=== PATIENT | female | born 1970 | race Caucasian/White ===

== ENCOUNTER 2023-10-22 05:41 | Observation (INO) ==
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
[2023-10-22] MEDS ORDERED: BUPIVACAINE 0.5% IT PRN (06:00)
[2023-10-22] MEDS ORDERED: HYDROMORPHONE IT PRN (06:00)
[2023-10-22] MEDS ORDERED: HYDROmorphone INJ 1 MG/ML SYRINGE IV PRN (06:35)
[2023-10-22] MEDS ORDERED: ATROPINE SULFATE 0.1 MG/ML 10ML SYR IV PRN (06:35)
[2023-10-22] MEDS ORDERED: LABETALOL HCL IV 5 MG/ML 20ML IV PRN (06:35)
[2023-10-22] MEDS ORDERED: ePHEDrine sulfate 50 MG/ML AMP IV PRN (06:35)
[2023-10-22] MEDS ORDERED: NALOXONE HCL 0.4 MG/1 ML VIAL/CARP IV PRN ×2 (06:35→10:23)
[2023-10-22] MEDS ORDERED: FLUMAZENIL 0.1 MG/1 ML 10 ML VIAL IV PRN (06:35)
[2023-10-22] MEDS: LR 15ML/HR IV SCH (06:47)
[2023-10-22] MEDS: ONDANSETRON INJ 2 MG/ML 2 ML VIAL IV PRN ×2 (07:13→16:12)
[2023-10-22] MEDS ORDERED: PROPOFOL IV EMULSION 10 MG/ML 20 ML VIAL IV ONE ×2 (07:14)
[2023-10-22] MEDS ORDERED: fentaNYL citrate PF 100 MCG/2 ML VIAL ONE (07:14)
[2023-10-22] MEDS ORDERED: MIDAZOLAM HCL 1 MG/ML 2ML VIAL ONE (07:16)
--- NOTE | 2023-10-22 07:23 | History & Physical Bridge Note ---
Date of Service October 22, 2023 History & Physical Bridge Note History & Physical Bridge Note Linh Garcia is a 53-year-old female with a history of having intrathecal drug delivery system to control her chronic thoracolumbar axial pain. She was referred to [facility] pain management center because of high residuals at refills recently and symptoms consistent with withdrawals. Additionally, the intrathecal pump is malpositioned and that it is highly mobile and flipping. Patient is scheduled today for evaluation and revision of the intrathecal pump, possible catheter or placement the entire system due to malfunction of the pump and malposition. Patient's past medical history, surgical history, medication and allergy list has been reviewed and no changes noted since his last history and physical examination performed. Review of systems is negative for any cardiac, pulmonary, GI, , endocrine or acute neurological complaints other than what is listed in the HPI section. Physical exam: GENERAL: Patient appears older than her stated age. Speech and cognition is intact. Mood and affect is appropriate. Sensorium is clear. She is in no acute distress. HEAD: Normocephalic; atraumatic. EYES: Pupils are round and equal. Mucous membranes moist and pink. No oral lesions noted. ENT: No external ear discharge or lesions. No rhinorrhea or epistaxis. No mucosal lesions. NECK: Full ROM. Trachea is midline. No thyromegaly. No cervical lymphadenopathy. Carotids without bruit. CARDIAC: Regular rate and rhythm. CHEST: Regular chest respiration and excursion. Lungs are clear to auscultation. ABDOMEN: No organomegaly appreciated. Bowel sounds are normal. EXTREMITIES: Full ROM and +5 strength of bilateral lower extremities. Distal sensation and pulses intact bilaterally. BACK: Loss of lumbar lordosis. NEURO: Cranial nerves II-XII grossly intact with no focal deficits noted. Deep tendon reflexes in the upper and the lower extremities are symmetrical. Sensation and motor strength testing is unremarkable. SKIN: No lesions, erythema, or rashes noted. ASSESSMENT: 1. Malfunctioning of intrathecal pump. 2. Malposition of intrathecal pump. RECOMMENDATIONS: 1. Evaluation of the intrathecal catheter with explores the pump pocket. 2. Replacement of intrathecal pump. 3. Revision and/or possible placement of the entire system. History reviewed, examination performed, pertinent laboratory and imaging studies reviewed. No contraindications noted to proceeding with the proposed procedure. Potential risks including infection, bleeding, hematoma, nerve injury, persistent back pain, injury to the spinal cord, dural puncture with persistent cerebrospinal fluid leak, post dural puncture headache which may require additional interventional procedures to treat were discussed with the patient in detail. Alternative treatments were also discussed. Patient's questions were answered and gives informed consent to proceed with the proposed procedure.
[2023-10-22] MEDS: ceFAZolin 3000MG 3,000 MG/72.5 ML BAG IV SCH (07:50)
[2023-10-22] MEDS ORDERED: SUCCINYLCHOLINE CHLORIDE 20 MG/ML 10 ML VIAL IV ONE (09:25)
[2023-10-22] MEDS ORDERED: CISATRACURIUM BESYLATE IV SOLN 2 MG/ML 10 ML VIAL IV ONE ×2 (09:25→09:30)
[2023-10-22] MEDS ORDERED: PHENYLEPHRINE 100MCG/ML 10ML SYR IV ONE (09:26)
[2023-10-22] MEDS ORDERED: ePHEDrine sulfate 50 MG/5 ML SYR ONE (09:26)
[2023-10-22] MEDS ORDERED: DEXAMETHASONE SOD INJ 4 MG/ML VIAL ONE (09:29)
[2023-10-22] MEDS ORDERED: ONDANSETRON INJ 2 MG/ML 2 ML VIAL ONE (09:29)
[2023-10-22] MEDS: ARISTA ABSORBABLE HEMOSTAT 3GM TOP ONE (09:40)
[2023-10-22] MEDS ORDERED: NEOSTIGMINE METHYLSULFATE 1 MG/ML 10ML VIAL ONE (10:05)
[2023-10-22] MEDS ORDERED: GLYCOPYRROLATE 0.2 MG/ML VIAL ONE (10:06)
[2023-10-22] MEDS ORDERED: MAGNESIUM CITRATE 296 ML/BTL PO PRN (10:23)
[2023-10-22] MEDS ORDERED: diphenhydrAMINE Capsule 25 MG CAP PO PRN (10:23)
[2023-10-22] MEDS ORDERED: ALBUTEROL HFA 8 GM INHALER INH PRN (10:27)
[2023-10-22] MEDS ORDERED: BACLOFEN 10 MG TAB PO PRN (10:27)
[2023-10-22] MEDS ORDERED: NITROGLYCERIN SL 0.4 MG/TAB TAB SL PRN (10:27)
[2023-10-22] MEDS ORDERED: ONDANSETRON 8MG OD TAB PO PRN (10:27)
[2023-10-22] MEDS ORDERED: DIPHENOXYLATE/ATROPINE 2.5/0.025MG TAB PO PRN (10:27)
[2023-10-22] MEDS ORDERED: NON-FORMULARY MEDICATION (Tirzepatide [Mounjaro] 5 mg/0.5 mL pen injector) SQ SCH (10:30)
[2023-10-22] MEDS ORDERED: NO NARCOTICS OR SEDATIVES SCH (10:30)
[2023-10-22] MEDS: LIDOCAINE 2%/EPINEPHRINE 1:100,000 20ML INFIL ONE (10:34)
[2023-10-22] MEDS: fentaNYL citrate PF 100 MCG/2 ML VIAL IV PRN (10:44)
[2023-10-22] MEDS: PROMETHAZINE HCL 6.25 MG in SODIUM CHLORIDE 0.9% 50 ML IV PRN (10:45)
--- NOTE | 2023-10-22 10:52 | Operative Report ---
WARD Post Operative Report Pre & Post Diagnosis Operation Date: 10/22/23 07:30 Pre-Op Diagnosis: 1. Malposition of Intrathecal Pump. 2. Nonfunctioning intrathecal catheter system. Post-Op Diagnosis: Same I identified the patient and participated in the time-out.: Yes Procedure Operation Date: 10/22/23 07:30 Actual Procedures: 1. Explantation of intrathecal pump and catheter. 2. Implantation of new intrathecal catheter and pump. 3. Refill and reprogram intrathecal pump. 4. Revision of the pump pocket. Hmuphrey Cr MD, [facility] Surgeon Humphrey Cr MD, [employer] Creative Services Specialist Lupe Hawkins DO Estimated Blood Loss 10 Findings Consistent with Post-Op Diagnosis Specimens None Drains None Anesthesia Type General Complications none Disposition Accompanied Patient To Recovery: No Disposition: Recovery Room Description of Procedure The patient was explained the risks, benefits, alternatives of the procedure and agreed to proceed as above. Informed consent was obtained and witnessed. Patient has intrathecal delivery system implanted but the catheter is located intrathecally as well as the pump is at high residuals and the patient experiencing withdrawal symptoms without efficacy. Further evaluation demonstrated intrathecal Trulicity was not functioning and therefore it was recommended patient to go explantation and replantation of the needle system. Patient also complained of the malpositioning of the intrathecal pump in the left lower quadrant of the abdomen and patient was offered revision of the pump pocket as well. A time out was performed after the patient was brought into the Operating Room. Antibiotics were given for prophylaxis. The patient was then induced with general anesthesia without complications and was placed in right lateral decubitus position. The skin was prepped over the thoracolumbar back and the abdomen with DuraPrep followed by Betadine and draped in sterile fashion. Sterile drapes and Ioban dressing was applied. The existing pump was identified in the left lower quadrant and using a scalpel, electro cautery, and blunt dissection, the existing pump was exposed and the old pump was explanted after removing 2 silk sutures. The catheter was located using fluoroscopy and incision was made in the thoracolumbar spine and carried down to locate the catheter using electrocautery. Catheter was noted to be out of the spinal canal and was pulled via the pocket incision easily. No CSF leak was noted. At this point, it was decided to replace the entire system. Using biplanar fluoroscopy an 14-gauge spinal needle was used to gain access to the intrathecal sac at L1/L2 interspace. Clear free cerebral spinal fluid flow was noted without any blood. Medtronic intrathecal catheter was passed through the needle under fluoroscopic guidance and the tip was positioned at top of T9 vertebra. Stylet was removed and free CSF flow was aspirated. Using a scalpel, 1 inch midline incision was made surrounding the intrathecal needle. Hemostasis was achieved using electro cautery. The epidural catheter was secured to the dorso- lumbar fascia with 2 purse string 0-0 silk ties. Then the spinal needle was removed and a Actitotronic butterfly anchor to secure the catheter to the underlying supraspinous ligament was utilized to secure the catheter. Free CSF flow from the intrathecal catheter after anchoring of the catheter to the fascia. The tunneling device was used to bring the proximal end of the catheter to the pump pocket. The sutureless connector/extension was attached to the catheter into a new pump. Free flow of CSF was aspirated via the access port of the pump. Both pocket and midline axial thoracic incisions were irrigated with sterile saline containing Betadine. Hemostasis was achieved using Lety. The intrathecal pump was filled was rinsed and filled with mg/ml per protocol. The intrathecal pump was anchored in the pocket with 4-0 Prolene sutures. No complications were noted after the intrathecal pump was placed inside the pocket. Both wounds were closed in similar fashion using continuous 0 antibiotic coated STRATAFIX suture for deeper layer and running 3-0 antibiotic coated STRATAFIX for subcuticular layer. Prineo dressing was applied to the skin. Aquacel Ag was applied to both incisions. Abdominal binder was placed. No complications were noted throughout the procedure. The patient tolerated the procedure and general anesthesia without obvious complications.. Patient was allowed to emerge from anesthesia at the end of the procedure and transferred back to the [facility]. Patient was transported to the recovery room in stable condition. The patient will follow up with our clinic within 7 days for a wound check and then plan to have the austin removed at day 14. Pump size inserted: 20 ml Level of catheter: Superior endplate T9 Catheter trimmed to: 0 cm Medication placed in pump: Hydromorphone 3.0 mg/ml and bupivacaine 10 mg/mL to run at 0.19 mg hydromorphone/24 hours I attest to the content of the Intraoperative Record and any orders documented therein. Any exceptions are noted below.
[2023-10-22] MEDS: PROMETHAZINE HCL INJ 25 MG/ML 1 ML VIAL ONE (13:11)
[2023-10-22] MEDS: SODIUM CHLORIDE 0.9% 50 ML BAG ONE (13:11)
--- NOTE | 2023-10-22 13:14 | Anesthesiology Progress Note ---
Date of Service October 22, 2023 Anesthesia Post Procedure Vital Signs Vital Signs: Temp Pulse Pulse Resp BP Pulse Ox O2 Del Method 10/22/23 13:00 73 20 102/53 L 92 Oxymask 10/22/23 12:30 79 17 91/64 L 95 Oxymask 10/22/23 12:00 65 12 104/58 L 94 Oxymask 10/22/23 11:30 70 16 99/70 L 97 Oxymask 10/22/23 11:20 75 20 126/61 100 Oxymask 10/22/23 11:10 36.4 C L 82 20 118/66 98 Oxymask 10/22/23 11:00 78 15 118/60 96 Oxymask 10/22/23 10:50 82 14 129/70 95 Oxymask 10/22/23 10:40 89 19 103/70 92 Oxymask 10/22/23 10:33 36.1 C L 86 16 134/66 93 Oxymask 10/22/23 06:09 36.6 C 65 18 143/85 H 94 Room Air O2 Flow Rate 10/22/23 13:00 4 10/22/23 12:30 4 10/22/23 12:00 4 10/22/23 11:30 4 10/22/23 11:20 4 10/22/23 11:10 4 10/22/23 11:00 4 10/22/23 10:50 6 10/22/23 10:40 6 10/22/23 10:33 6 10/22/23 06:09 Pain Intensity Lower Back: Pain Intensity: 4 Transfer of Care Handoff Completed per policy Notes Mental Status: alert / awake / arousable Patient Amnestic to Procedure: Yes Nausea / Vomiting: adequately controlled Pain: adequately controlled Airway Patency, RR, SpO2: stable & adequate BP & HR: stable & adequate Hydration State: stable & adequate Anesthetic Complications: no major complications apparent
[2023-10-22] MEDS: GABAPENTIN 800 MG TAB PO SCH (14:41)
[2023-10-22] MEDS: HYDROCODONE/ACETAMOPHEN 5/325MG TAB PO PRN (14:41)
[2023-10-22] MEDS: buPROPion SR 150 MG TABCR PO SCH (14:42)
[2023-10-22] MEDS: droNABinol 2.5 MG CAP PO SCH (17:28)
[2023-10-22] MEDS: HYDROmorphone INJ 0.5 MG/0.5 ML SYR IV PRN (17:34)
[2023-10-22] MEDS: busPIRone 5 MG TAB PO SCH (19:51)
[2023-10-22] MEDS: AMITRIPTYLINE HCL 10 MG TAB PO SCH (19:51)
[2023-10-22] MEDS: DOCUSATE SODIUM 100 MG CAP PO SCH (19:52)
[2023-10-22] MEDS: SUCRALFATE 1 GM TAB PO SCH (19:52)
[2023-10-23] MEDS: LACTATED RINGER'S 1,000 ML IV SCH (01:07)
--- NOTE | 2023-10-23 06:12 | Communication Note ---
Date of Service: October 23, 2023 1100 PM Notified that patient had not yet urinated since her surgery that morning. Patient was bladder scanned and shown to have 112 cc in her bladder. No suprapubic discomfort or urethral burning at this time. Started on mIVF. Patient with chronic urinary incontinence, no known history or urinary retention. 0600 AM Notified that patient was bladder scanned for 450 ccs. Patient straight cathed for 900 ccs. Urinalysis and urine culture ordered. Patient to trial voiding independently post straight cath this AM. Patient may require Kirk placement for bladder rest if still not urinating this AM, orders placed.
[2023-10-23 06:39] LABS: Appearance Urine Clear (Clear); Bacteria Urine Automated Negative (Negative); Bilirubin Urine Negative (Negative); Blood Urine Negative (Negative); Color Urine Yellow; Glucose Urine UA Negative (Negative); Ketones Urine Negative (Negative); Leukocyte Esterase Urine Trace (Negative); Nitrite Urine Negative (Negative); Protein Urine Trace (Negative); RBC Urine Automated 0-4 /hpf (0-4); Specific Gravity Urine 1.021 (1.000-1.030); Urobilinogen Urine Negative (Negative)
[2023-10-23] MEDS: metFORMIN HCL 500 MG TAB PO SCH (07:57)
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
--- NOTE | 2023-10-23 08:29 | Pain Management Progress Note ---
Date of Service October 23, 2023 Assessment & Plan (1) Malfunction of intrathecal infusion pump: (2) Intractable back pain: (3) Implantable intrathecal infusion pump present: Plan 1. Patient is experiencing urinary retention status post surgery that did require straight catheterization this morning. Intrathecal pump was programmed at minimal rate to receive hydromorphone 0.207 mg/day and bupivacaine 0.069 mg/day. She does have hydrocodone 5/325 mg every 4 hours ordered if needed for pain. 2. Incisions appear well. She does have follow up appointment with Leyda JUAREZ next week for wound check. 3. Wear abdominal binder 24/ x 4 weeks then during activity only x 4 weeks 4. She is currently receiving 4 liters of oxygen via Oxymask and there is notable wheezing noted. She states that her oxygen saturations at home are typically between 90-92 but she does not typically wheeze. 5. Once she is able to void plan to discharge to home. Admission and Anticipated Discharge Date Admission Date: October 22, 2023 Waleska Melton is a 53-year-old female that is status post explantation of intrathecal pump and catheter and implantation of new intrathecal pump and catheter. Since surgery she has not been able to urinate and did require straight catheterization this morning and 950 cc of urine was removed and sent for urinalysis. Patient states that her low back pain is unchanged from prior to surgery. Pain is rated 6/10 currently. She is wearing abdominal binder without issue. There is a mild headache but it is not positional or severe. No discharge noted from the incisions. She does have a mild discomfort in the left lower abdomen with positional changes. There is mild nausea, no vomiting. No fevers, chills, dizziness. Case discussed with Dr. Lupe Hawkins Physical Exam Physical Exam: GENERAL: This is a morbidly obese 53 year old female in no acute distress. HEAD/FACE: Normocephalic and atraumatic. EYES: No drainage or conjunctival injection. ENT: Nose without bleeding or discharge. Oral mucosa moist. NECK: Full ROM without apparent pain. No swelling or masses noted. RESPIRATORY: Wearing 4 L of oxygen via mask. There is wheezing noted. CHEST/AXILLA: Chest movement symmetrical. No deformities noted. ABDOMEN/GI: Intrathecal pump is located along the left lower abdomen. Mild tenderness. No mobility or flipping noted. Aquacel dressing is intact. No drainage noted. BACK: Moves without difficulty. Thoracolumbar incision does not show any drainage, erythema, warmth. Aquacel dressing is intact. SKIN: There is a small incision along the left flank with gauze and tape dressing without any erythema, warmth, drainage. MS/EXTREMITY: No swelling, no deformities. Moving extremities appropriately. NEURO: Alert and appears oriented. Speech is fluent. Cranial Nerves are grossly intact. PSYCH: Alert, pleasant, affect is calm
[2023-10-23] MEDS: SERTRALINE HCL 100 MG TABLET PO SCH (09:00)
[2023-10-23] MEDS: LOSARTAN POTASSIUM 50 MG TAB PO SCH (09:00)
[2023-10-23] MEDS: PANTOprazole 40 MG TAB PO SCH (09:00)
[2023-10-23 09:01] LABS: Hematocrit (blood only) 38.2 % (37.0-47.0); Hemoglobin 11.8 g/dl (12.0-16.0); Mean Corpuscular Hgb Conc 30.9 g/dL (32.0-36.0); Mean Corpuscular Volume 84.1 fL (80.0-100.0); Mean Platelet Volume 9.2 fL (9.4-12.4); Platelet Count 215 K/uL (130-400); RDW Coefficient of Variation 15.2 % (11.5-14.5); RDW Standard Deviation 46.8 fL (36.4-46.3); Red Blood Count 4.54 M/uL (4.20-5.40); White Blood Count 10.44 K/ul (4.8-10.8)
[2023-10-23] MEDS: CHOLECALCIFEROL 10 MCG (400 UNITS) TAB PO SCH (09:01)
[2023-10-23] MEDS: ATORVASTATIN 20 MG TAB PO SCH (09:01)
[2023-10-23] MEDS: ARIPiprazole 10 MG TAB PO SCH (09:01)
[2023-10-23] MEDS: hydroCHLOROthiazide 25 MG TAB PO SCH (09:01)
[2023-10-23 09:19] LABS: Calcium 8.8 mg/dl (8.6-10.3); Creatinine Clr Calc Pharmacy 97.3 ml/min; Est GFR (African American) 73.5 ml/min; Est GFR (Non-African American) 63.4 ml/min; Potassium 3.7 mmol/L (3.5-5.1)
[2023-10-23] MEDS: ACETAMINOPHEN 500 MG TAB PO PRN (10:31)
--- NOTE | 2023-10-24 08:33 | Pain Management Progress Note ---
Date of Service October 24, 2023 Assessment & Plan (1) Malfunction of intrathecal infusion pump: (2) Intractable back pain: (3) Implantable intrathecal infusion pump present: Plan 1. Continue with current intrathecal dosage. She is programmed to receive minimal rate at hydromorphone 0.207 mg/day and bupivacaine 0.069 mg/day. She does have hydrocodone 5/325 mg every 4 hours ordered if needed for pain. 2. Incisions appear well. No care necessary or Aquacel dressings until wound check appointment. Daily gauze and tape changes to the left flank incision. She does have follow up appointment with Leyda JUAREZ next week for wound check. 3. Wear abdominal binder 24/7 x 4 weeks then during activity only x 4 weeks 4. She feels comfortable to return home. Discharge to home today. Admission and Anticipated Discharge Date Admission Date: October 22, 2023 Waleska Melton is a 53-year-old female that is status post day 2 explantation of intrathecal pump and catheter and implantation of new intrathecal pump and catheter. Patient states that her low back pain is unchanged from prior to surgery. Pain is rated 6/10 currently. She is wearing abdominal binder without issue. Headache and nausea has resolved. No discharge noted from the incisions. She does have a mild discomfort in the left lower abdomen with positional changes. She was experiencing urinary retention yesterday and did require intermittent straight catheterization. Overnight she has been able to void x3. No fevers, chills, dizziness. Case discussed with Dr. Cr Physical Exam Physical Exam: GENERAL: This is a morbidly obese 53 year old female in no acute distress. HEAD/FACE: Normocephalic and atraumatic. EYES: No drainage or conjunctival injection. ENT: Nose without bleeding or discharge. Oral mucosa moist. NECK: Full ROM without apparent pain. No swelling or masses noted. RESPIRATORY: No respiratory distress. No wheezing. CHEST/AXILLA: Chest movement symmetrical. No deformities noted. ABDOMEN/GI: Intrathecal pump is located along the left lower abdomen. Mild tenderness. No mobility or flipping noted. Aquacel dressing is intact. No drainage noted. BACK: Moves without difficulty. Thoracolumbar incision does not show any drainage, erythema, warmth. Aquacel dressing is intact. SKIN: There is a small incision along the left flank with gauze and tape dressing without any erythema, warmth, drainage. Dressing changed. MS/EXTREMITY: No swelling, no deformities. Moving extremities appropriately. NEURO: Alert and appears oriented. Speech is fluent. Cranial Nerves are grossly intact. PSYCH: Alert, pleasant, affect is calm
--- NOTE | 2023-10-24 08:40 | Discharge Summary ---
Date of Service October 24, 2023 Admission HPI Per Admitting Provider Mrs. Washington is a 53-year-old white female referred from outside pain clinic for evaluation of possible intrathecal pump catheter malfunction. The patient has history of chronic axial low back pain with reported history of chronic oral opiate therapy transition to intrathecal opiate therapy in 2019. Patient was reportedly doing well initially with intrathecal and bupivacaine hydromorphone, but then experienced poor pain control which led to pump revision in [id number] reportedly due to catheter malfunction. She then had improved pain control after this revision until approximately 4-6 weeks ago when she experienced an episode of nausea with increased anxiety, diaphoresis and poor pain control. There was concern about withdrawal and she did undergo intrathecal pump increase x 2 with minimal improvement in her pain control. The patient was experiencing high residuals at the time of her pump refills x 2 further indicating possible pump malfunction. Further investigation by our clinic indicated that her intrathecal catheter is malpositioned and not currently in the intrathecal space. It is therefore been recommended that she undergo intrathecal pump and catheter revision/replacement. Patient's pain is 100% axial in the thoracolumbar and lumbar regions. She rates her pain a 7-9/10 at all times described as aching and episodically throbbing. Her pain is exacerbated with standing and walking for greater than 15 minutes with improvement with sitting. She then experiences increased pain with any extended sitting. She had previously failed multiple injection therapies, physical therapy, spinal cord stimulator trial/implantation, ice, heat, acetaminophen, gabapentin and multiple chronic oral opiate therapy prior to her implantation of intrathecal pump. She does continue to have spinal cord stimulator in place with poor efficacy. Patient reported no further constitutional complaints. Plan of care discussed with Dr. Cr. Admission Exam (Per Admitting) Constitutional General: Patient sitting quietly in exam room in no acute distress. Speech and thought process appropriate. Mood and affect appropriate. Cognition intact. Patient morbidly obese. Head: Normocephalic and atraumatic. ENT: No evidence of nasal or oral mucosal lesions. Mucous membranes are moist. Eyes: Pupils equal round reactive to light. Neck: Supple without adenopathy and full range of motion. Chest: Nontender to palpation of the costosternal junction. Cardiac: Regular rate and rhythm without murmur. Lungs: Clear to auscultation no wheeze or rhonchi. Abdomen: Soft and nondistended. No organomegaly. Bowel sounds active. Pump present in the left lower quadrant with a well-healed surgical incision. Pump is nonmobile. No evidence of edema, erythema or skin breakdown. Nontender to palpation. Back/spine: Complete loss of lumbar lordosis. Patient has a well-healed midline surgical incision extending from the mid-lower thoracic spine through the mid lumbar spine. She has multiple healed incisions in the left lumbar paravertebral location and 1 over the right gluteal region at site of her spinal cord stimulator battery/generator. Patient is tender to palpation over the entire thoracolumbar paravertebral musculature with slight hyperalgesia. Limited range of motion in all planes. Lower extremities: SLR increased axial low back pain bilaterally without radicular component. Patient moderately tender over the greater trochanter. Strength testing 5/5 and equal some guarding with hip flexion/extension. Sensation intact without deficit. SAMIA maneuver increased hip and lower back pain bilaterally right greater than left-sided. Neurologic: Cranial nerves grossly intact. Ambulatory function slowed and slightly guarded. Discharge Data Consultations 10/22/23 10:26 Consult Hospitalist Routine Procedures Performed Operation Date: 10/22/23 07:30 Actual Procedures p Replacement of Intrathecal Pain Pump with Replacement of Intrathecal Catheter(Not Applicable) - Humphrey Cr MD, [facility] Hospital Course (1) Malfunction of intrathecal infusion pump: (2) Intractable back pain: (3) Implantable intrathecal infusion pump present: Plan Intrathecal pump and catheter delivery system was replaced. She did experience urinary retention post operatively and required intermittent straight catheterization. The intrathecal pump dosage was programmed to provide minimal rate. The evening of post op day 2 she had started to void without any intervention. She has Hydrocodone 5/325mg to take if needed for post operative pain. Chronic back pain is unchanged but she will work with her local pain clinic for intrathecal pump dose adjustments. Discharge Instructions Wear abdominal binder 24/7 x 4 weeks, then during increased activity only for an additional 4 weeks. Change left flank bandage daily. Keep scheduled appointment with Leyda JUAREZ for wound checks and further intrathecal pump care. Hydrocodone 5/325mg has been prescribed for you to take if needed for postoperative pain.
== END 2023-10-24 10:05 | disposition home or self-care (01) ==
LOC: ASU 05:41 → PACUINP 05:41 → 2S 15:58
DX: M47.816 Spondylosis without myelopathy or radiculopathy, lumbar region; I10 Essential (primary) hypertension; T85.615A Breakdown (mechanical) of other nervous system device, implant or graft, initial encounter; E66.01 Morbid (severe) obesity due to excess calories; E11.42 Type 2 diabetes mellitus with diabetic polyneuropathy; Z88.0 Allergy status to penicillin; Z88.8 Allergy status to other drugs, medicaments and biological substances; G89.29 Other chronic pain; E28.2 Polycystic ovarian syndrome; Y82.8 Other medical devices associated with adverse incidents; K21.9 Gastro-esophageal reflux disease without esophagitis; F41.9 Anxiety disorder, unspecified; E78.5 Hyperlipidemia, unspecified; Z87.891 Personal history of nicotine dependence; Z68.42 Body mass index [BMI] 45.0-49.9, adult; Z79.84 Long term (current) use of oral hypoglycemic drugs; F32.A Depression, unspecified; Z79.899 Other long term (current) drug therapy